=== PATIENT | female | born 1995 | race Caucasian/White ===

== ENCOUNTER 2020-07-10 23:45 | Emergency (ER) | payer OTHER ==
[~2020-07-10] VITALS: Ht 162.6 cm; Wt 90.7 kg
[2020-07-10] MEDS ORDERED: LEVO-T25 MCG PO (23:54)
[2020-07-10] MEDS ORDERED: TIZANIDINE HCL4 M1 PO (23:54)
[2020-07-11 00:34] LABS: ABSOLUTE EOSINOPHILS 0.1 thou/uL (0.0-0.7); ABSOLUTE LYMPHOCYTES 2.6 thou/uL (0.8-5.3); ABSOLUTE MONOCYTES 0.7 thou/uL (0.0-1.2); ABSOLUTE NEUTROPHILS 5.9 thou/uL (1.6-8.1); BASOPHILS 0.5 %; EOSINOPHILS 0.7 %; HEMATOCRIT 40.1 % (37.0-47.0); HEMOGLOBIN 13.6 gm/dL (12.0-15.0); LYMPHOCYTES 27.8 %; MCH 29.7 pg (26.0-34.0); MCV 87.3 fL (80.0-100.0); MONOCYTES 7.8 %; MPV 7.5 fl. (7.2-11.1); NUCLEATED RBCS 0 /100WBC; PLATELET COUNT* 304 thou/uL (150-400); POLYS 63.2 %; RDW-CV 13.1 % (10.5-14.5); WBC 9.4 thou/uL (4.0-11.0)
[2020-07-11 00:42] LABS: CALCIUM 8.9 mg/dL (8.5-10.1); CREATININE 0.8 mg/dL (0.6-1.3); POTASSIUM 3.6 mmol/L (3.5-5.1)
[2020-07-11 00:43] LABS: APTT 25.5 Seconds (25.0-31.3); INR 0.9; PROTIME 9.8 Seconds (9.20-11.50)
[2020-07-11 00:57] LABS: ALBUMIN 4.1 g/dL (3.4-5.0); TOTAL BILIRUBIN 0.3 mg/dL (<0.1-1.0); TOTAL PROTEIN 8.3 g/dL (6.4-8.2)
[2020-07-11 01:20] VITALS: BP 116/71
--- NOTE | 2020-07-12 17:50 | EKG ---
[place] [address] ELECTROCARDIOGRAM REPORT Name: RACHANA KUMAR Room: [facility]#: [id number] Admission: 07/10/20 Attend Phys: Discharge: 07/11/20 Date of : 89 Date of Service: 07/11/20 0005 Report #: [id number] THIS REPORT FOR: //name// [facility] ED Test Date: 2020-07-11 Test Time: 00:05:54 Pat Name: RACHANA KUMAR Department: Room: Gender: Make Up Girl: : 1995 Requested By: Adria Garcia Order Number: [id number] MD: Vick Ball Measurements Intervals [place] Rate: 100 P: 41 WI: 153 QRS: 6 QRSD: 96 T: 19 QT: 348 QTc: 449 Interpretive Statements Sinus tachycardia Baseline wander in lead(s) V1 No previous ECG available for comparison Electronically Signed On 07-12-2020 17:50:41 CDT by Vick Ball [email or web address] <ELECTRONICALLY SIGNED> By: Vick Ball MD, [facility] 07/12/20 175 0005 0005 Vick Ball MD, FACC /EPI
== END 2020-07-11 01:21 | disposition home or self-care (01) ==
LOC: M.ERS 23:45
PROVIDERS: Family Medicine
DX: R07.9 Chest pain, unspecified (principal); R07.81 Pleurodynia; E03.9 Hypothyroidism, unspecified; Z79.899 Other long term (current) drug therapy

== ENCOUNTER 2021-01-18 23:55 | Emergency (ER) | payer OTHER, MEDICAID ==
[~2021-01-18] VITALS: Ht 160 cm; Wt 84.4 kg
[~2021-01-18 23:55] MED LIST: LEVO-T25 MCG PO; TIZANIDINE HCL4 M1 PO
[2021-01-19 01:08] LABS: ABSOLUTE EOSINOPHILS 0.1 thou/uL (0.0-0.7); ABSOLUTE LYMPHOCYTES 3.2 thou/uL (0.8-5.3); ABSOLUTE MONOCYTES 0.6 thou/uL (0.0-1.2); BASOPHILS 0.5 %; EOSINOPHILS 0.8 %; HEMATOCRIT 39.2 % (37.0-47.0); HEMOGLOBIN 13.3 gm/dL (12.0-15.0); LYMPHOCYTES 35.6 %; MCHC 33.9 g/dL (28.0-37.0); MCV 88.3 fL (80.0-100.0); MONOCYTES 7.3 %; MPV 7.3 fl. (7.2-11.1); NUCLEATED RBCS 0 /100WBC; PLATELET COUNT* 292 thou/uL (150-400); POLYS 55.8 %; RBC 4.44 mil/uL (4.20-5.00); RDW-CV 13.4 % (10.5-14.5); WBC 8.9 thou/uL (4.0-11.0)
[2021-01-19 01:11] LABS: CALCIUM 9.3 mg/dL (8.5-10.1); CREATININE 0.7 mg/dL (0.6-1.3); POTASSIUM 3.4 mmol/L (3.5-5.1)
[2021-01-19 01:15] LABS: ALBUMIN 3.9 g/dL (3.4-5.0); TOTAL BILIRUBIN 0.4 mg/dL (<0.1-1.0); TOTAL PROTEIN 7.7 g/dL (6.4-8.2)
[2021-01-19] MEDS ORDERED: CARAFATE 1 GM TA1 GM PO (02:25)
[2021-01-19 02:29] VITALS: BP 102/58
--- NOTE | 2021-01-19 11:24 | EKG ---
[place] [address] ELECTROCARDIOGRAM REPORT Name: RACHANA KUMAR Room: 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
== END 2021-01-19 02:29 | disposition home or self-care (01) ==
LOC: M.ERS 23:55
PROVIDERS: Personal Emergency Response Attendant
DX: R07.89 Other chest pain (principal); E03.9 Hypothyroidism, unspecified; Z90.89 Acquired absence of other organs

== ENCOUNTER 2021-07-01 16:58 | Emergency (ER) | payer OTHER, MEDICAID ==
[~2021-07-01] VITALS: Ht 162.6 cm; Wt 81.7 kg
[~2021-07-01 16:58] MED LIST changes: +CARAFATE 1 GM TA1 GM PO
[2021-07-01 17:17] VITALS: BP 131/75
[2021-07-01] MEDS ORDERED: PROTONIX40 M2 PO (17:18)
[2021-07-01] MEDS ORDERED: DOXYCYCLINE 10100 M2 PO (17:54)
== END 2021-07-01 18:07 | disposition home or self-care (01) ==
LOC: M.ERS 16:58
DX: T63.391A Toxic effect of venom of other spider, accidental (unintentional), initial encounter (principal); E03.9 Hypothyroidism, unspecified; Z90.89 Acquired absence of other organs; Z79.899 Other long term (current) drug therapy; Y92.89 Other specified places as the place of occurrence of the external cause